=== PATIENT | female | born 1945 | race Caucasian/White ===

== ENCOUNTER 2023-12-01 13:57 | Outpatient (CLI) | payer MEDICARE, OTHER | END 2023-12-01 13:58 | disposition home or self-care (01) | LOC: CSHRAD 13:57 | PROVIDERS: ATTEND Otolaryngology | DX: R13.10 Dysphagia, unspecified (principal); K44.9 Diaphragmatic hernia without obstruction or gangrene; K21.9 Gastro-esophageal reflux disease without esophagitis; R47.02 Dysphasia | CPT/HCPCS: 74220 ==